=== PATIENT | female | born 1945 | race Caucasian/White ===

== ENCOUNTER 2019-10-17 18:46 | Inpatient (IN) | payer MEDICARE ==
[2019-10-18] MEDS: Acetaminophen 325 MG TAB PO PRN ×3 (06:08→17:12)
[2019-10-18] MEDS: Aspirin 81 mg Enteric Coated Tablet PO SCH (08:44)
[2019-10-18] MEDS: Gabapentin 300 MG CAP PO SCH ×2 (08:45→20:27)
[2019-10-18] MEDS ORDERED: Prevnar 13-Val Conj/PF 0.5 ML SYRINGE IM ONE (09:00)
[2019-10-18] MEDS ORDERED: Potassium Chloride 10 MEQ TAB PO SCH (09:00)
[2019-10-18] MEDS: Montelukast Sodium 10 mg Tablet PO SCH (20:26)
[2019-10-18] MEDS: Atorvastatin Calcium 40 MG TAB PO SCH (20:27)
[2019-10-18] MEDS: Mirtazapine 15 MG TAB PO SCH (20:27)
[2019-10-18] MEDS: traMADol HCl 50 MG TAB PO PRN (21:45)
[2019-10-19] MEDS: Acetaminophen 325 MG TAB PO PRN ×2 (08:26→18:46)
[2019-10-19] MEDS: Aspirin 81 mg Enteric Coated Tablet PO SCH (08:27)
[2019-10-19] MEDS: Gabapentin 300 MG CAP PO SCH ×2 (08:27→21:04)
[2019-10-19] MEDS: traMADol HCl 50 MG TAB PO PRN ×2 (11:16→21:05)
[2019-10-19] MEDS: Atorvastatin Calcium 40 MG TAB PO SCH (21:04)
[2019-10-19] MEDS: Mirtazapine 15 MG TAB PO SCH (21:05)
[2019-10-19] MEDS: Montelukast Sodium 10 mg Tablet PO SCH (21:05)
[2019-10-20] MEDS: traMADol HCl 50 MG TAB PO PRN ×2 (08:59→15:50)
[2019-10-20] MEDS: Aspirin 81 mg Enteric Coated Tablet PO SCH (09:01)
[2019-10-20] MEDS: Gabapentin 300 MG CAP PO SCH ×2 (09:01→20:27)
[2019-10-20] MEDS: Mirtazapine 15 MG TAB PO SCH (20:26)
[2019-10-20] MEDS: Montelukast Sodium 10 mg Tablet PO SCH (20:26)
[2019-10-20] MEDS: Atorvastatin Calcium 40 MG TAB PO SCH (20:26)
[2019-10-21] MEDS: Aspirin 81 mg Enteric Coated Tablet PO SCH (08:41)
[2019-10-21] MEDS: Gabapentin 300 MG CAP PO SCH ×2 (08:41→20:46)
[2019-10-21] MEDS: Acetaminophen 325 MG TAB PO PRN (08:42)
[2019-10-21] MEDS: traMADol HCl 50 MG TAB PO PRN ×2 (13:50→20:45)
[2019-10-21] MEDS: Atorvastatin Calcium 40 MG TAB PO SCH (20:45)
[2019-10-21] MEDS: Mirtazapine 15 MG TAB PO SCH (20:45)
[2019-10-21] MEDS: Montelukast Sodium 10 mg Tablet PO SCH (20:46)
--- NOTE | 2019-10-22 01:49 | HP ---
CHIEF COMPLAINT: Generalized weakness. HISTORY OF PRESENT ILLNESS: The patient is a 74-year-old white female, who was recently admitted to inpatient rehab for diffuse weakness and increasing risk of fall. After discharge, the patient presented to [facility] because of increased lower extremity weakness as well as paresthesia and numbness and tingling intermittently in her feet and hands bilaterally. She was admitted to [facility] and evaluated for CVA workup. She had imaging, which was negative for stroke. Dr. Syed, Neurology was consulted, who recommended the patient start 81 mg aspirin and atorvastatin. She was also found to have some mild orthostatic hypotension that resolved with IV fluids. She underwent echocardiogram consistent with diastolic dysfunction, but she had no findings consistent with an acute CVA. The patient was extremely weak and having difficulty with ambulation. She is high risk for fall. She was evaluated by Physical Therapy and was deemed to be appropriate for physical therapy, and she was deemed appropriate to be transferred to [facility] for evaluation for swing bed. PAST MEDICAL HISTORY: Significant for congestive heart failure, history of alcohol abuse in the past, hypertension, gastroesophageal reflux disease, chronic renal disease stage 3, and history of tobacco abuse. PAST SURGICAL HISTORY: None. FAMILY HISTORY: Significant for mother with breast cancer at age 53. Father had coronary artery disease, PR and stroke at age 76. SOCIAL HISTORY: The patient smokes about one pack per day since she was 14 years old. She reports drinking hard liquor with Sprite daily, but says that she has not had any alcohol for over a week and has had no signs of withdrawal. The patient does live alone and has had increased knee pain and weakness over several months with some debilitation and risk for fall. REVIEW OF SYSTEMS: The patient denies any fevers, chills, or night sweats. No nausea, vomiting, or diarrhea. No chest pain or shortness of breath. There was a concern for possible and she was seen in inpatient rehab, but workup for parasite, stool studies were all negative. The patient denies any significant weight loss or weight gain. No significant swelling of the joint other than her knees bilaterally, which she says is chronic in nature. The patient does report paresthesias and tingling of her fingers and toes bilaterally, which comes and goes, which has been relieved in the past by gabapentin. She has no focal weakness, numbness, or dizziness, and has had no history of seizures and no syncopal spells. PHYSICAL EXAMINATION: VITAL SIGNS: Blood pressure was 122/68, respiratory rate was 16, pulse was 82, temperature 97.8, and O2 saturation 99% on room air. HEENT: Atraumatic and normocephalic. Extraocular movements are intact. Pupils are equal, round, and reactive to light and accommodation. Oropharynx, mucous membranes are moist. No exudate, discharge, or lesions. NECK: Supple. No masses palpated. CHEST: Clear to auscultation bilaterally. HEART: Regular rate and rhythm without murmurs, rubs, or gallops. ABDOMEN: Soft, nontender, and nondistended. No masses were palpated. EXTREMITIES: Sensation was intact to the upper and lower extremities bilaterally. The patient did not have any obvious motor weakness other than just diffuse decreased strength with leg elevation bilaterally. ASSESSMENT AND PLAN: 1. Debilitation, weakness. The patient appears to have pretty fair to poor personal diet and some poor hygiene by living alone, exacerbated possibly by alcohol abuse. At this time, the patient has not had alcohol for over 7 to 10 days. No signs of withdrawal. She was checked for folic acid and thiamine deficiency and she was not found to have any in her acute stay. We will recommend multivitamins and proper diet. Alcohol cessation, moderate use and appropriate use will be discussed with the patient. The patient will undergo physical therapy and occupational therapy for diffuse weakness. 2. Peripheral neuropathy. This may be related to chronic alcohol use. We will start the patient on Neurontin 300 mg p.o. b.i.d., evaluate and consider titrating if her symptoms do not improve. 3. History of smoking. Smoking cessation was recommended. We will consider nicotine patch if the patient agrees. 4. Hyperlipidemia/possible risk for cerebrovascular accident. The patient will continue aspirin and atorvastatin as recommended by Neurology. 5. Disposition: Plan is for the patient to be discharged to home if her motor and sensory symptoms improve. She does not have signs of osteoarthritis of her extremity, especially in her knees. Hopefully with rehab, she will be able to be fully independent. Since the patient is fairly mobile, deep venous thrombosis prophylaxis may not be needed. We will evaluate the patient's mobility and decide if anything other than aspirin will be needed. Job ID: [id number]
[2019-10-22] MEDS: traMADol HCl 50 MG TAB PO PRN (07:28)
[2019-10-22] MEDS: Multivit, Therapeutic 1 TAB PO SCH (08:05)
[2019-10-22] MEDS: Aspirin 81 mg Enteric Coated Tablet PO SCH (08:05)
[2019-10-22] MEDS: Gabapentin 300 MG CAP PO SCH ×2 (08:06→21:12)
[2019-10-22] MEDS: Docusate 100 MG CAP PO PRN (18:54)
[2019-10-22] MEDS: Montelukast Sodium 10 mg Tablet PO SCH (21:11)
[2019-10-22] MEDS: Mirtazapine 15 MG TAB PO SCH (21:11)
[2019-10-22] MEDS: Nicotine 21 MG PATCH TOP SCH (21:12)
[2019-10-22] MEDS: Atorvastatin Calcium 40 MG TAB PO SCH (21:12)
[2019-10-23] MEDS: diphenhydrAMINE 25 MG CAP PO PRN (01:43)
[2019-10-23] MEDS: traMADol HCl 50 MG TAB PO PRN (05:24)
[2019-10-23] MEDS: Docusate 100 MG CAP PO PRN (08:03)
[2019-10-23] MEDS: Multivit, Therapeutic 1 TAB PO SCH (08:03)
[2019-10-23] MEDS: Aspirin 81 mg Enteric Coated Tablet PO SCH (08:03)
[2019-10-23] MEDS: Gabapentin 300 MG CAP PO SCH ×2 (08:04→21:46)
[2019-10-23] MEDS: Acetaminophen 325 MG TAB PO PRN (08:19)
[2019-10-23] MEDS: AQUAPHOR FS PRN (14:48)
[2019-10-23] MEDS: Montelukast Sodium 10 mg Tablet PO SCH (21:46)
[2019-10-23] MEDS: Nicotine 21 MG PATCH TOP SCH (21:46)
[2019-10-23] MEDS: Mirtazapine 15 MG TAB PO SCH (21:46)
[2019-10-23] MEDS: Atorvastatin Calcium 40 MG TAB PO SCH (21:46)
[2019-10-24] MEDS: traMADol HCl 50 MG TAB PO PRN ×3 (01:19→20:09)
[2019-10-24] MEDS: AQUAPHOR FS PRN (07:31)
[2019-10-24] MEDS: Gabapentin 300 MG CAP PO SCH ×2 (08:27→20:09)
[2019-10-24] MEDS: Aspirin 81 mg Enteric Coated Tablet PO SCH (08:27)
[2019-10-24] MEDS: Multivit, Therapeutic 1 TAB PO SCH (08:27)
[2019-10-24] MEDS: Mirtazapine 15 MG TAB PO SCH (20:08)
[2019-10-24] MEDS: Nicotine 21 MG PATCH TOP SCH (20:09)
[2019-10-24] MEDS: Montelukast Sodium 10 mg Tablet PO SCH (20:09)
[2019-10-24] MEDS: Atorvastatin Calcium 40 MG TAB PO SCH (20:09)
[2019-10-25] MEDS: Acetaminophen 325 MG TAB PO PRN (04:45)
[2019-10-25] MEDS: diphenhydrAMINE 25 MG CAP PO PRN (04:49)
[2019-10-25] MEDS: AQUAPHOR FS PRN ×2 (04:50→17:10)
[2019-10-25] MEDS: Docusate 100 MG CAP PO PRN (08:49)
[2019-10-25] MEDS: Aspirin 81 mg Enteric Coated Tablet PO SCH (08:49)
[2019-10-25] MEDS: Gabapentin 300 MG CAP PO SCH ×2 (08:49→20:42)
[2019-10-25] MEDS: Multivit, Therapeutic 1 TAB PO SCH (08:49)
[2019-10-25] MEDS: traMADol HCl 50 MG TAB PO PRN ×2 (08:56→17:08)
[2019-10-25] MEDS: Clindamycin 150 MG CAP PO SCH ×2 (09:49→17:08)
[2019-10-25] MEDS: Atorvastatin Calcium 40 MG TAB PO SCH (20:42)
[2019-10-25] MEDS: Montelukast Sodium 10 mg Tablet PO SCH (20:42)
[2019-10-25] MEDS: Nicotine 21 MG PATCH TOP SCH (20:42)
[2019-10-25] MEDS: Mirtazapine 15 MG TAB PO SCH (20:42)
[2019-10-26] MEDS: traMADol HCl 50 MG TAB PO PRN ×3 (01:56→17:16)
[2019-10-26] MEDS: Clindamycin 150 MG CAP PO SCH ×3 (01:56→17:16)
[2019-10-26] MEDS: AQUAPHOR FS PRN (06:07)
[2019-10-26] MEDS: Multivit, Therapeutic 1 TAB PO SCH (09:08)
[2019-10-26] MEDS: Aspirin 81 mg Enteric Coated Tablet PO SCH (09:08)
[2019-10-26] MEDS: Gabapentin 300 MG CAP PO SCH ×2 (09:08→20:42)
[2019-10-26] MEDS: Docusate 100 MG CAP PO PRN (09:09)
[2019-10-26] MEDS: Polyethylene Glycol 3350 17 GM Packet PO PRN (11:29)
[2019-10-26] MEDS: Montelukast Sodium 10 mg Tablet PO SCH (20:42)
[2019-10-26] MEDS: Mirtazapine 15 MG TAB PO SCH (20:42)
[2019-10-26] MEDS: Atorvastatin Calcium 40 MG TAB PO SCH (20:42)
[2019-10-26] MEDS: Nicotine 21 MG PATCH TOP SCH (20:54)
[2019-10-27] MEDS: Clindamycin 150 MG CAP PO SCH ×3 (02:02→17:38)
[2019-10-27] MEDS: traMADol HCl 50 MG TAB PO PRN ×3 (02:08→16:12)
[2019-10-27] MEDS: Polyethylene Glycol 3350 17 GM Packet PO PRN (09:22)
[2019-10-27] MEDS: Multivit, Therapeutic 1 TAB PO SCH (09:23)
[2019-10-27] MEDS: Aspirin 81 mg Enteric Coated Tablet PO SCH (09:23)
[2019-10-27] MEDS: Docusate 100 MG CAP PO PRN (09:24)
[2019-10-27] MEDS: Gabapentin 300 MG CAP PO SCH ×2 (09:24→20:52)
[2019-10-27] MEDS: Acetaminophen 325 MG TAB PO PRN (09:43)
[2019-10-27] MEDS: AQUAPHOR FS PRN (16:13)
[2019-10-27] MEDS: Mirtazapine 15 MG TAB PO SCH (20:52)
[2019-10-27] MEDS: Montelukast Sodium 10 mg Tablet PO SCH (20:52)
[2019-10-27] MEDS: Atorvastatin Calcium 40 MG TAB PO SCH (20:52)
[2019-10-27] MEDS: Nicotine 21 MG PATCH TOP SCH (21:06)
[2019-10-28] MEDS: traMADol HCl 50 MG TAB PO PRN (00:50)
[2019-10-28] MEDS: Clindamycin 150 MG CAP PO SCH ×3 (02:17→17:47)
[2019-10-28] MEDS: Gabapentin 300 MG CAP PO SCH ×2 (08:57→21:08)
[2019-10-28] MEDS: Aspirin 81 mg Enteric Coated Tablet PO SCH (08:57)
[2019-10-28] MEDS: Multivit, Therapeutic 1 TAB PO SCH (09:04)
[2019-10-28] MEDS: Atorvastatin Calcium 40 MG TAB PO SCH (21:08)
[2019-10-28] MEDS: Mirtazapine 15 MG TAB PO SCH (21:08)
[2019-10-28] MEDS: Nicotine 21 MG PATCH TOP SCH (21:09)
[2019-10-28] MEDS: Montelukast Sodium 10 mg Tablet PO SCH (21:09)
[2019-10-28] MEDS: Acetaminophen 325 MG TAB PO PRN (21:09)
[2019-10-29] MEDS: Clindamycin 150 MG CAP PO SCH ×3 (01:35→18:09)
[2019-10-29] MEDS: Acetaminophen 325 MG TAB PO PRN ×4 (01:36→21:04)
[2019-10-29] MEDS: Aspirin 81 mg Enteric Coated Tablet PO SCH (08:45)
[2019-10-29] MEDS: Gabapentin 300 MG CAP PO SCH ×2 (08:46→21:05)
[2019-10-29] MEDS: Multivit, Therapeutic 1 TAB PO SCH (08:46)
[2019-10-29 14:50] LABS: Hemoglobin 12.2 g/dL (12.0-16.0); Mean Corpuscular HGB CONC 28.2 g/dL (32.0-36.0); Mean Corpuscular Hemoglobin 31.6 pg (27.0-31.0); Mean Platelet Volume 8.3 fL (7.4-10.4); Platelet Count 203 thou/uL (130-400); RBC Distribution Width 15.3 % (11.5-14.5); Red Blood Cell (RBC) Count 3.85 mill/uL (4.20-5.40); White Blood Cell (WBC) Count 6.3 thou/uL (4.8-10.8)
[2019-10-29 15:04] LABS: ALT (SGPT) 18 U/L (8-55); Albumin 3.4 g/dL (3.4-4.8); Alkaline Phosphatase 64 U/L (40-110); Anion Gap 15 mmol/L (10-20); BUN (Urea Nitrogen) 9 mg/dL (9.8-20.1); Bilirubin, Total Less than 0.2 mg/dL (0.2-1.2); Calc. Creatinine Clearance 89 mL/min (70-130); Carbon Dioxide 24 mmol/L (23-31); Chloride 105 mmol/L (98-107); Estimated GFR-MDRD 75; Globulin 3.4 g/dL (2.4-3.5); Glucose 101 mg/dL (83-110); Protein, Total 6.8 g/dL (6.0-8.3); Sodium 139 mmol/L (136-145)
[2019-10-29 15:29] LABS: AST (SGOT) 36 U/L (5-34)
[2019-10-29 15:35] LABS: Band 14 % (5-11); Eosinophils 6 % (0-10); Hypochromia MODERATE=16-30 cells (100X) (0-5/hpf); Lymphocytes 10 % (21-51); MDiff Complete? YES; Macrocytosis MARKED = >30 cells (100X) (0-5/hpf); Monocytes 3 % (0-10); Neutrophil 66 % (42-75); Reactive Lymphocytes 1 % (0-10)
[2019-10-29] MEDS: Ibuprofen 600 MG TAB PO PRN (15:44)
[2019-10-29] MEDS: Mirtazapine 15 MG TAB PO SCH (21:05)
[2019-10-29] MEDS: Nicotine 21 MG PATCH TOP SCH (21:05)
[2019-10-29] MEDS: Atorvastatin Calcium 40 MG TAB PO SCH (21:05)
[2019-10-29] MEDS: Montelukast Sodium 10 mg Tablet PO SCH (21:05)
[2019-10-29] MEDS: diphenhydrAMINE 25 MG CAP PO PRN (22:42)
[2019-10-30] MEDS: Clindamycin 150 MG CAP PO SCH ×3 (01:45→17:54)
[2019-10-30] MEDS: Acetaminophen 325 MG TAB PO PRN ×3 (03:31→19:12)
[2019-10-30] MEDS: Aspirin 81 mg Enteric Coated Tablet PO SCH (09:43)
[2019-10-30] MEDS: Gabapentin 300 MG CAP PO SCH ×2 (09:43→21:05)
[2019-10-30] MEDS: Ibuprofen 600 MG TAB PO PRN (15:29)
[2019-10-30] MEDS ORDERED: Benzonatate 100 MG CAP PO PRN (17:57)
[2019-10-30] MEDS: Atorvastatin Calcium 40 MG TAB PO SCH (21:05)
[2019-10-30] MEDS: Nicotine 21 MG PATCH TOP SCH (21:05)
[2019-10-30] MEDS: Mirtazapine 15 MG TAB PO SCH (21:05)
[2019-10-30] MEDS: Montelukast Sodium 10 mg Tablet PO SCH (21:05)
[2019-10-30] MEDS: traMADol HCl 50 MG TAB PO PRN (22:31)
[2019-10-31] MEDS: Clindamycin 150 MG CAP PO SCH ×3 (02:10→20:10)
[2019-10-31] MEDS: Aspirin 81 mg Enteric Coated Tablet PO SCH ×2 (08:38→08:42)
[2019-10-31] MEDS: Gabapentin 300 MG CAP PO SCH ×2 (08:38→20:10)
[2019-10-31] MEDS: traMADol HCl 50 MG TAB PO PRN (08:42)
[2019-10-31] MEDS: Acetaminophen 325 MG TAB PO PRN (14:05)
[2019-10-31] MEDS: Montelukast Sodium 10 mg Tablet PO SCH (20:10)
[2019-10-31] MEDS: Atorvastatin Calcium 40 MG TAB PO SCH (20:10)
[2019-10-31] MEDS: Ibuprofen 600 MG TAB PO PRN (20:11)
[2019-10-31] MEDS: Mirtazapine 15 MG TAB PO SCH (20:11)
[2019-10-31] MEDS: Nicotine 21 MG PATCH TOP SCH (20:15)
[2019-10-31] MEDS: Melatonin 3 MG TAB PO PRN (22:22)
[2019-11-01] MEDS: Clindamycin 150 MG CAP PO SCH ×3 (02:22→18:08)
[2019-11-01] MEDS: Aspirin 81 mg Enteric Coated Tablet PO SCH (08:44)
[2019-11-01] MEDS: Gabapentin 300 MG CAP PO SCH ×2 (08:44→21:26)
[2019-11-01] MEDS: traMADol HCl 50 MG TAB PO PRN ×2 (08:48→21:41)
[2019-11-01] MEDS: Mirtazapine 15 MG TAB PO SCH (21:25)
[2019-11-01] MEDS: Montelukast Sodium 10 mg Tablet PO SCH (21:26)
[2019-11-01] MEDS: Atorvastatin Calcium 40 MG TAB PO SCH (21:26)
[2019-11-01] MEDS: Melatonin 3 MG TAB PO PRN (21:35)
[2019-11-01] MEDS: Nicotine 21 MG PATCH TOP SCH (21:49)
[2019-11-02] MEDS: Clindamycin 150 MG CAP PO SCH ×3 (02:05→17:23)
[2019-11-02] MEDS: Aspirin 81 mg Enteric Coated Tablet PO SCH (09:16)
[2019-11-02] MEDS: Gabapentin 300 MG CAP PO SCH ×2 (09:16→21:36)
[2019-11-02] MEDS: traMADol HCl 50 MG TAB PO PRN ×2 (09:25→21:39)
[2019-11-02] MEDS: Atorvastatin Calcium 40 MG TAB PO SCH (21:35)
[2019-11-02] MEDS: Nicotine 21 MG PATCH TOP SCH (21:35)
[2019-11-02] MEDS: Mirtazapine 15 MG TAB PO SCH (21:36)
[2019-11-02] MEDS: Montelukast Sodium 10 mg Tablet PO SCH (21:36)
[2019-11-02] MEDS: Melatonin 3 MG TAB PO PRN (23:05)
[2019-11-03] MEDS: Clindamycin 150 MG CAP PO SCH ×3 (02:16→17:52)
[2019-11-03] MEDS: Acetaminophen 325 MG TAB PO PRN (02:16)
[2019-11-03] MEDS: Aspirin 81 mg Enteric Coated Tablet PO SCH (09:17)
[2019-11-03] MEDS: Gabapentin 300 MG CAP PO SCH ×2 (09:17→20:47)
[2019-11-03] MEDS: traMADol HCl 50 MG TAB PO PRN ×2 (09:20→20:55)
[2019-11-03] MEDS: diphenhydrAMINE 25 MG CAP PO PRN ×2 (15:59→23:31)
[2019-11-03] MEDS: Montelukast Sodium 10 mg Tablet PO SCH (20:47)
[2019-11-03] MEDS: Mirtazapine 15 MG TAB PO SCH (20:47)
[2019-11-03] MEDS: Nicotine 21 MG PATCH TOP SCH (20:47)
[2019-11-03] MEDS: Atorvastatin Calcium 40 MG TAB PO SCH (20:47)
[2019-11-03] MEDS: Docusate 100 MG CAP PO PRN (20:56)
[2019-11-03] MEDS ORDERED: Triamcinolone 0.1% Cream 15 GM TUBE TOP PRN (22:33)
[2019-11-04] MEDS: Ibuprofen 600 MG TAB PO PRN (02:28)
[2019-11-04] MEDS: Clindamycin 150 MG CAP PO SCH ×2 (02:28→11:02)
[2019-11-04] MEDS: traMADol HCl 50 MG TAB PO PRN (08:48)
[2019-11-04] MEDS: Gabapentin 300 MG CAP PO SCH ×2 (08:52→20:33)
[2019-11-04] MEDS: Aspirin 81 mg Enteric Coated Tablet PO SCH (08:52)
[2019-11-04] MEDS: Triamcinolone 0.1% Cream 15 GM TUBE TOP SCH ×2 (08:53→20:30)
[2019-11-04 13:14] VITALS: BMI 31.6
[2019-11-04] MEDS: Nicotine 21 MG PATCH TOP SCH (20:31)
[2019-11-04] MEDS: Mirtazapine 15 MG TAB PO SCH (20:32)
[2019-11-04] MEDS: Atorvastatin Calcium 40 MG TAB PO SCH (20:33)
[2019-11-04] MEDS: Montelukast Sodium 10 mg Tablet PO SCH (20:33)
[2019-11-04] MEDS: diphenhydrAMINE 25 MG CAP PO PRN (20:42)
[2019-11-04] MEDS: Melatonin 3 MG TAB PO PRN (23:15)
[2019-11-04] MEDS: Acetaminophen 325 MG TAB PO PRN (23:15)
[2019-11-05] MEDS: Aspirin 81 mg Enteric Coated Tablet PO SCH (08:23)
[2019-11-05] MEDS: Gabapentin 300 MG CAP PO SCH ×2 (08:23→20:46)
[2019-11-05] MEDS: Triamcinolone 0.1% Cream 15 GM TUBE TOP SCH ×2 (08:23→20:46)
[2019-11-05] MEDS: traMADol HCl 50 MG TAB PO PRN ×2 (08:27→19:24)
[2019-11-05 18:17] VITALS: TEMP 98.2
[2019-11-05] MEDS: Ibuprofen 600 MG TAB PO PRN (20:45)
[2019-11-05] MEDS: Montelukast Sodium 10 mg Tablet PO SCH (20:46)
[2019-11-05] MEDS: Nicotine 21 MG PATCH TOP SCH (20:46)
[2019-11-05] MEDS: Atorvastatin Calcium 40 MG TAB PO SCH (20:46)
[2019-11-05] MEDS: Mirtazapine 15 MG TAB PO SCH (20:46)
[2019-11-05] MEDS: Acetaminophen 325 MG TAB PO PRN (22:11)
[2019-11-06 06:35] VITALS: BP 117/57
[2019-11-06] MEDS: Aspirin 81 mg Enteric Coated Tablet PO SCH (08:59)
[2019-11-06] MEDS: Gabapentin 300 MG CAP PO SCH (08:59)
[2019-11-06] MEDS: Triamcinolone 0.1% Cream 15 GM TUBE TOP SCH (09:01)
== END 2019-11-06 12:23 | disposition home health service (06) | DRG 897 ==
LOC: BURMED 20:55
PROVIDERS: ADMIT Family Medicine; ATTEND Family Medicine
DX: F10.10 Alcohol abuse, uncomplicated (principal); I13.0 Hypertensive heart and chronic kidney disease with heart failure and stage 1 through stage 4 chronic kidney disease, or unspecified chronic kidney disease; N18.3 Chronic kidney disease, stage 3 (moderate); K21.9 Gastro-esophageal reflux disease without esophagitis; I50.9 Heart failure, unspecified; I95.1 Orthostatic hypotension; G62.9 Polyneuropathy, unspecified; E78.5 Hyperlipidemia, unspecified; F17.210 Nicotine dependence, cigarettes, uncomplicated
CPT/HCPCS: 36415; 80053; 85025; Q0163

== ENCOUNTER 2020-06-26 01:45 | Emergency (ER) | payer MEDICARE ==
[2020-06-26] MEDS ORDERED: Fentanyl 100 MCG/2 ML VIAL ONE (02:26)
[2020-06-26] MEDS ORDERED: Cefepime 2 GM VIAL ONE (02:34)
[2020-06-26] MEDS ORDERED: Sodium Chloride 0.9% 100 ML ONE (02:34)
[2020-06-26 03:02] LABS: Hemoglobin 13.4 g/dL (12.0-16.0); Mean Corpuscular Hemoglobin 38.8 pg (27.0-31.0); Mean Platelet Volume 8.6 fL (7.4-10.4); Platelet Count 115 thou/uL (130-400); RBC Distribution Width 16.4 % (11.5-14.5); Red Blood Cell (RBC) Count 3.45 mill/uL (4.20-5.40); White Blood Cell (WBC) Count 11.7 thou/uL (4.8-10.8)
[2020-06-26 03:05] LABS: INR-International Normal Ratio 1.1; PTT 28.3 sec (22.9-36.1); Prothrombin Time 14.5 sec (12.0-14.7)
[2020-06-26 03:16] LABS: ALT (SGPT) 50 U/L (8-55); AST (SGOT) 116 U/L (5-34); Albumin 3.2 g/dL (3.4-4.8); Alkaline Phosphatase 110 U/L (40-110); Anion Gap 16 mmol/L (10-20); BUN (Urea Nitrogen) 8 mg/dL (9.8-20.1); Bilirubin, Total 0.9 mg/dL (0.2-1.2); CK (CPK) 145 U/L (29-168); Calc. Creatinine Clearance 0 mL/min (70-130); Calcium 8.1 mg/dL (7.8-10.44); Carbon Dioxide 29 mmol/L (23-31); Chloride 94 mmol/L (98-107); Globulin 2.9 g/dL (2.4-3.5); Glucose 125 mg/dL (83-110); Protein, Total 6.1 g/dL (5.8-8.1); Sodium 136 mmol/L (136-145)
[2020-06-26 03:20] LABS: Potassium 2.9 mmol/L (3.5-5.1)
[2020-06-26 03:35] LABS: Band 4 % (5-11); Lymphocytes 7 % (21-51); MDiff Complete? YES; Macrocytosis SLIGHT = 6-15 cells (100X) (0-5/hpf); Monocytes 7 % (0-10); Neutrophil 80 % (42-75); Platelet Morphology Comment Appears Decreased; Reactive Lymphocytes 1 % (0-10); Vacuoles SLIGHT
== END 2020-06-26 03:05 | disposition short-term general hospital (02) ==
LOC: BURERS 01:45
DX: S72.401A Unspecified fracture of lower end of right femur, initial encounter for closed fracture (principal); L03.116 Cellulitis of left lower limb; L03.115 Cellulitis of right lower limb; F17.210 Nicotine dependence, cigarettes, uncomplicated; I50.9 Heart failure, unspecified; Z79.899 Other long term (current) drug therapy; W01.198A Fall on same level from slipping, tripping and stumbling with subsequent striking against other object, initial encounter
CPT/HCPCS: 36415; 71045; 80053; 82550; 85025; 85610; 85730; 93005; 96365; 96375; J0692; J3010; J3490

== ENCOUNTER 2021-07-16 13:54 | Observation (INO) | payer MEDICARE ==
[2021-07-16] MEDS ORDERED: Fentanyl 100 MCG/2 ML VIAL ONE ×2 (14:43→15:13)
[2021-07-16 15:17] LABS: Bilirubin Small (Negative); Blood, Urine Large (Negative); Clarity Turbid (Clear); Glucose, Urine (Dipstick) 100 mg/dL (Negative); Ketone, Urine Trace mg/dL (Negative); Leukocyte Large (Negative); Nitrite Positive (Negative); Protein, Urine (Dipstick) 100 mg/dL (Neg-Trace); Specific Gravity, Urine 1.025 (1.005-1.030); Urobilinogen 0.2 mg/dL (Less than 2)
[2021-07-16 15:29] LABS: #Eosinphils 0.1 thou/uL (0.0-0.7); #Lymphocytes 1.4 thou/uL (1.20-3.40); #Monocytes 0.5 thou/uL (0.11-0.59); #Neutrophils 8.8 thou/uL (1.40-6.50); %Basophils 0.4 % (0.0-1.0); %Lymphocytes 12.6 % (21.0-51.0); %Monocytes 4.8 % (0.0-10.0); %Neutrophils 81.2 % (42.0-75.0); Hemoglobin 11.5 g/dL (12.0-16.0); Mean Corpuscular HGB CONC 31.7 g/dL (32.0-36.0); Mean Corpuscular Hemoglobin 31.4 pg (27.0-31.0); Mean Corpuscular Volume 99.1 fL (78.0-98.0); Platelet Count 349 thou/uL (130-400); RBC Distribution Width 18.3 % (11.5-14.5); Red Blood Cell (RBC) Count 3.65 mill/uL (4.20-5.40); White Blood Cell (WBC) Count 10.8 thou/uL (4.8-10.8)
[2021-07-16 15:33] LABS: ALT (SGPT) 13 U/L (8-55); AST (SGOT) 36 U/L (5-34); Albumin 2.3 g/dL (3.4-4.8); Alkaline Phosphatase 105 U/L (40-110); Anion Gap 15 mmol/L (10-20); BUN (Urea Nitrogen) 11 mg/dL (9.8-20.1); Bilirubin, Total 0.6 mg/dL (0.2-1.2); Calc. Creatinine Clearance 0 mL/min (70-130); Calcium 8.2 mg/dL (7.8-10.44); Carbon Dioxide 28 mmol/L (23-31); Chloride 101 mmol/L (98-107); Globulin 4.2 g/dL (2.4-3.5); Glucose 83 mg/dL (83-110); Potassium 4.1 mmol/L (3.5-5.1); Protein, Total 6.5 g/dL (5.8-8.1); Sodium 140 mmol/L (136-145)
[2021-07-16 15:36] LABS: Squamous Epithelial 0-3 HPF (0-3); Transitional Epithelial 0-3 HPF (None Seen); WBC/HPF Greater Than 50 HPF (0-3)
[2021-07-16 15:39] LABS: Bacteria/HPF 3+ HPF (None Seen); Yeast-Budding 1+ HPF (None Seen); Yeast-Hyphae 1+ HPF (None Seen)
[2021-07-16] MEDS ORDERED: cefTRIAXone\\ROCEPHIN 1 GM VIAL ONE (15:56)
[2021-07-16] MEDS ORDERED: Ondansetron PF 4 MG/2 ML Vial ONE (17:29)
[2021-07-16] MEDS ORDERED: Ondansetron PF 4 MG/2 ML Vial IVP PRN (17:45)
[2021-07-16] MEDS ORDERED: Ondansetron ODT 4 MG TAB SL PRN (17:45)
[2021-07-16] MEDS ORDERED: Senokot S 8.6-50 MG TAB PO PRN (20:44)
[2021-07-16] MEDS: Nicotine 14 MG PATCH TD SCH (20:56)
[2021-07-16] MEDS: Gabapentin 300 MG CAP PO SCH (20:56)
[2021-07-16] MEDS: Acetaminophen 325 MG TAB PO PRN (20:57)
[2021-07-17 06:08] LABS: Anion Gap 14 mmol/L (10-20); BUN (Urea Nitrogen) 9 mg/dL (9.8-20.1); Calc. Creatinine Clearance 79 mL/min (70-130); Carbon Dioxide 25 mmol/L (23-31); Chloride 104 mmol/L (98-107); Glucose 75 mg/dL (83-110); Potassium 3.7 mmol/L (3.5-5.1); Sodium 139 mmol/L (136-145)
[2021-07-17 06:34] VITALS: BMI 27.4
[2021-07-17 06:52] LABS: #Basophils 0.1 thou/uL (0.0-0.2); #Eosinphils 0.2 thou/uL (0.0-0.7); #Lymphocytes 1.6 thou/uL (1.20-3.40); #Monocytes 0.5 thou/uL (0.11-0.59); #Neutrophils 5.2 thou/uL (1.40-6.50); %Basophils 0.8 % (0.0-1.0); %Eosinophils 2.2 % (0.0-10.0); %Lymphocytes 21.3 % (21.0-51.0); %Monocytes 6.3 % (0.0-10.0); %Neutrophils 69.5 % (42.0-75.0); Hemoglobin 11.6 g/dL (12.0-16.0); Mean Corpuscular HGB CONC 31.3 g/dL (32.0-36.0); Mean Corpuscular Hemoglobin 32.1 pg (27.0-31.0); Mean Platelet Volume 6.7 fL (7.4-10.4); Platelet Count 282 thou/uL (130-400); White Blood Cell (WBC) Count 7.5 thou/uL (4.8-10.8)
[2021-07-17] MEDS: Gabapentin 300 MG CAP PO SCH ×3 (08:36→21:18)
[2021-07-17] MEDS: Lisinopril 20 MG TAB PO SCH (08:36)
[2021-07-17 08:47] LABS: MDiff Complete? YES; Macrocytosis SLIGHT = 6-15 cells (100X) (0-5/hpf); Platelet Morphology Comment Appears Adequate
[2021-07-17] MEDS ORDERED: Furosemide 20 MG TAB PO SCH (09:00)
[2021-07-17] MEDS: Acetaminophen 325 MG TAB PO PRN ×2 (10:25→21:18)
[2021-07-17] MEDS ORDERED: Vancomycin 25 MG/ML Oral SOLN PO SCH (12:45)
[2021-07-17] MEDS: Sodium Chloride 0.9% 250 ML IV SCH ×4 (15:25→17:36)
[2021-07-17] MEDS ORDERED: cefTRIAXone\\ROCEPHIN 1 GM in Sodium Chloride 0.9% 100 ML IVPB SCH (16:00)
[2021-07-17 16:02] LABS: SARS-CoV-2 PCR by NAA DETECTED (NotDetected)
[2021-07-17] MEDS: Vancomycin 25 MG/ML Oral SOLN PO SCH (17:03)
[2021-07-17] MEDS: Nicotine 14 MG PATCH TD SCH (21:19)
[2021-07-18] MEDS: Vancomycin 25 MG/ML Oral SOLN PO SCH ×4 (01:35→17:16)
[2021-07-18] MEDS: Lisinopril 20 MG TAB PO SCH (09:41)
[2021-07-18] MEDS: Gabapentin 300 MG CAP PO SCH ×2 (09:41→13:38)
[2021-07-18] MEDS: Acetaminophen 325 MG TAB PO PRN (13:38)
[2021-07-19] MEDS: Nicotine 14 MG PATCH TD SCH ×2 (00:08→20:31)
[2021-07-19] MEDS: Vancomycin 25 MG/ML Oral SOLN PO SCH ×3 (00:08→11:04)
[2021-07-19] MEDS: Gabapentin 300 MG CAP PO SCH ×4 (00:08→20:31)
[2021-07-19] MEDS: Acetaminophen 325 MG TAB PO PRN (11:03)
[2021-07-19] MEDS ORDERED: Vancomycin HCl 1 GM in Sodium Chloride 0.9% 250 ML 300 ML IVPB SCH (13:45)
[2021-07-19] MEDS: Vancomycin HCl 1 GM in Sodium Chloride 0.9% 250 ML 250 ML IVPB SCH (14:34)
[2021-07-19] MEDS: Lisinopril 20 MG TAB PO SCH (17:59)
[2021-07-20] MEDS: Gabapentin 300 MG CAP PO SCH ×3 (09:32→21:04)
[2021-07-20] MEDS: Lisinopril 20 MG TAB PO SCH (09:33)
[2021-07-20] MEDS: Acetaminophen 325 MG TAB PO PRN (09:43)
[2021-07-20] MEDS: Vancomycin HCl 1 GM in Sodium Chloride 0.9% 250 ML 250 ML IVPB SCH (14:25)
[2021-07-20 17:13] VITALS: BP 134/63; TEMP 98.3
[2021-07-20] MEDS: Nicotine 14 MG PATCH TD SCH (21:04)
== END 2021-07-20 23:24 | disposition swing bed (61) ==
LOC: BURERS 13:54 → BURMED 16:15 → INTOOBSV 16:15
PROVIDERS: ADMIT Family Medicine; ATTEND Family Medicine
DX: A04.72 Enterocolitis due to Clostridium difficile, not specified as recurrent (principal); L89.612 Pressure ulcer of right heel, stage 2; L89.622 Pressure ulcer of left heel, stage 2; N30.01 Acute cystitis with hematuria; B95.7 Other staphylococcus as the cause of diseases classified elsewhere; U07.1 COVID-19; F03.90 Unspecified dementia, unspecified severity, without behavioral disturbance, psychotic disturbance, mood disturbance, and anxiety; E86.0 Dehydration; J30.1 Allergic rhinitis due to pollen; I50.30 Unspecified diastolic (congestive) heart failure; J44.9 Chronic obstructive pulmonary disease, unspecified; G62.9 Polyneuropathy, unspecified; F17.210 Nicotine dependence, cigarettes, uncomplicated; Z79.899 Other long term (current) drug therapy; Z88.5 Allergy status to narcotic agent
CPT/HCPCS: 36415; 51701; 80048; 80053; 81003; 81015; 83605; 85025; 87040; 87077; 87086; 87186; 87324; 87449; 87493; 96365; 96366; 96367; 96375; G0378; J0696; J2405; J3010; J3370; J7030; J7050; U0003; U0005

== ENCOUNTER 2021-07-20 23:30 | Inpatient (IN) | payer MEDICARE ==
[2021-07-21 00:36] VITALS: BMI 27.4
[2021-07-21] MEDS ORDERED: Senokot S 8.6-50 MG TAB PO PRN ×3 (00:45→14:30)
[2021-07-21] MEDS ORDERED: Ondansetron PF 4 MG/2 ML Vial IVP PRN (01:00)
[2021-07-21] MEDS ORDERED: Ondansetron ODT 4 MG TAB SL PRN (01:00)
[2021-07-21] MEDS ORDERED: Acetaminophen 325 MG TAB PO PRN (01:00)
[2021-07-21] MEDS ORDERED: Nicotine 14 MG PATCH TD SCH (09:00)
[2021-07-21] MEDS ORDERED: Non-Formulary Item 1 EACH (Gabapentin [Gabapentin] 600 MG Tablet) PO SCH (09:00)
[2021-07-21] MEDS: Gabapentin 300 MG CAP PO SCH ×3 (09:39→21:00)
[2021-07-21] MEDS: Acetaminophen 325 MG TAB PO PRN ×2 (09:40→15:19)
[2021-07-21] MEDS: Furosemide 20 MG TAB PO SCH (09:41)
[2021-07-21] MEDS: Lisinopril 20 MG TAB PO SCH (09:41)
[2021-07-21] MEDS: Vancomycin HCl 1 GM in Sodium Chloride 0.9% 250 ML 250 ML IVPB SCH (15:12)
[2021-07-21] MEDS: Loperamide HCl 2 MG CAP PO PRN (16:34)
[2021-07-21] MEDS: Nicotine 14 MG PATCH TD SCH (21:01)
[2021-07-22] MEDS: Lisinopril 20 MG TAB PO SCH (08:32)
[2021-07-22] MEDS: Gabapentin 300 MG CAP PO SCH ×3 (08:33→20:36)
[2021-07-22] MEDS: Furosemide 20 MG TAB PO SCH (08:34)
[2021-07-22] MEDS: Loperamide HCl 2 MG CAP PO PRN (10:42)
[2021-07-22] MEDS: Vancomycin HCl 1 GM in Sodium Chloride 0.9% 250 ML 250 ML IVPB SCH (14:22)
[2021-07-22] MEDS: Nicotine 14 MG PATCH TD SCH (20:35)
[2021-07-23] MEDS: Gabapentin 300 MG CAP PO SCH ×3 (09:20→20:26)
[2021-07-23] MEDS: Lisinopril 20 MG TAB PO SCH (09:21)
[2021-07-23] MEDS: Furosemide 20 MG TAB PO SCH (09:22)
[2021-07-23] MEDS: Acetaminophen 325 MG TAB PO PRN ×3 (09:38→22:51)
[2021-07-23 13:26] LABS: Vancomycin, Trough 19.3 ug/mL
[2021-07-23] MEDS: Vancomycin HCl 1 GM in Sodium Chloride 0.9% 250 ML 250 ML IVPB SCH (14:35)
[2021-07-23] MEDS: Loperamide HCl 2 MG CAP PO PRN (14:49)
[2021-07-23] MEDS: Nicotine 14 MG PATCH TD SCH (20:26)
[2021-07-24] MEDS: Furosemide 20 MG TAB PO SCH (09:52)
[2021-07-24] MEDS: Gabapentin 300 MG CAP PO SCH ×3 (09:52→21:10)
[2021-07-24] MEDS: Acetaminophen 325 MG TAB PO PRN (09:53)
[2021-07-24] MEDS: Lisinopril 20 MG TAB PO SCH (09:55)
[2021-07-24] MEDS: Vancomycin HCl 1 GM in Sodium Chloride 0.9% 250 ML 250 ML IVPB SCH (14:28)
[2021-07-24] MEDS: Betamethasone 0.1% Cream 15 GM TUBE TOP PRN (16:54)
[2021-07-24] MEDS: Nicotine 14 MG PATCH TD SCH (21:10)
[2021-07-24] MEDS: diphenhydrAMINE 25 MG CAP PO PRN (21:26)
[2021-07-25] MEDS: diphenhydrAMINE 25 MG CAP PO PRN ×2 (04:30→13:56)
[2021-07-25] MEDS: Betamethasone 0.1% Cream 15 GM TUBE TOP PRN ×2 (04:31→09:21)
[2021-07-25] MEDS: Gabapentin 300 MG CAP PO SCH ×3 (09:18→21:07)
[2021-07-25] MEDS: Acetaminophen 325 MG TAB PO PRN (09:19)
[2021-07-25] MEDS: Furosemide 20 MG TAB PO SCH (09:20)
[2021-07-25 13:28] LABS: Vancomycin, Trough 18.7 ug/mL
[2021-07-25] MEDS: Vancomycin HCl 1 GM in Sodium Chloride 0.9% 250 ML 250 ML IVPB SCH (13:56)
[2021-07-25] MEDS: Lisinopril 20 MG TAB PO SCH (17:56)
[2021-07-25] MEDS: Nicotine 14 MG PATCH TD SCH (21:07)
[2021-07-26] MEDS: Lisinopril 20 MG TAB PO SCH (09:44)
[2021-07-26] MEDS: Furosemide 20 MG TAB PO SCH (09:44)
[2021-07-26] MEDS: Gabapentin 300 MG CAP PO SCH ×3 (09:44→20:32)
[2021-07-26] MEDS: Acetaminophen 325 MG TAB PO PRN (11:35)
[2021-07-26] MEDS: Vancomycin HCl 1 GM in Sodium Chloride 0.9% 250 ML 250 ML IVPB SCH (15:08)
[2021-07-26] MEDS: diphenhydrAMINE 25 MG CAP PO PRN (15:10)
[2021-07-26] MEDS: Betamethasone 0.1% Cream 15 GM TUBE TOP PRN (15:33)
[2021-07-26] MEDS: Nicotine 14 MG PATCH TD SCH (20:33)
[2021-07-27 05:31] LABS: Prothrombin Time 13.3 sec (12.0-14.7)
[2021-07-27 05:32] LABS: PTT 30.5 sec (22.9-36.1)
[2021-07-27 05:47] LABS: #Eosinphils 0.1 thou/uL (0.0-0.7); #Lymphocytes 1.2 thou/uL (1.20-3.40); #Monocytes 0.4 thou/uL (0.11-0.59); #Neutrophils 2.6 thou/uL (1.40-6.50); %Basophils 0.7 % (0.0-1.0); %Eosinophils 3.2 % (0.0-10.0); %Lymphocytes 27.5 % (21.0-51.0); %Neutrophils 59.6 % (42.0-75.0); Hemoglobin 9.2 g/dL (12.0-16.0); MDiff Complete? YES; Macrocytosis SLIGHT = 6-15 cells (100X) (0-5/hpf); Mean Corpuscular HGB CONC 32.4 g/dL (32.0-36.0); Mean Corpuscular Hemoglobin 32.4 pg (27.0-31.0); Mean Platelet Volume 6.9 fL (7.4-10.4); Platelet Count 235 thou/uL (130-400); RBC Distribution Width 18.6 % (11.5-14.5); Red Blood Cell (RBC) Count 2.83 mill/uL (4.20-5.40); White Blood Cell (WBC) Count 4.4 thou/uL (4.8-10.8)
[2021-07-27 06:13] LABS: Anion Gap 15 mmol/L (10-20); BUN (Urea Nitrogen) 14 mg/dL (9.8-20.1); Calc. Creatinine Clearance 86 mL/min (70-130); Calcium 8.1 mg/dL (7.8-10.44); Carbon Dioxide 28 mmol/L (23-31); Chloride 105 mmol/L (98-107); Glucose 83 mg/dL (83-110); Potassium 4.4 mmol/L (3.5-5.1); Sodium 144 mmol/L (136-145)
[2021-07-27] MEDS: Furosemide 20 MG TAB PO SCH (09:05)
[2021-07-27] MEDS: Gabapentin 300 MG CAP PO SCH ×3 (09:06→21:52)
[2021-07-27] MEDS: Lisinopril 20 MG TAB PO SCH (09:06)
[2021-07-27] MEDS: diphenhydrAMINE 25 MG CAP PO PRN ×2 (11:04→22:12)
[2021-07-27] MEDS: Loperamide HCl 2 MG CAP PO PRN (11:04)
[2021-07-27] MEDS: Acetaminophen 325 MG TAB PO PRN ×2 (11:29→21:53)
[2021-07-27] MEDS: Nicotine 14 MG PATCH TD SCH (21:51)
[2021-07-27] MEDS: Nystatin Powder 15 GM BOT TOP SCH (21:51)
[2021-07-28] MEDS: Gabapentin 300 MG CAP PO SCH ×3 (09:03→20:42)
[2021-07-28] MEDS: Furosemide 20 MG TAB PO SCH (09:04)
[2021-07-28] MEDS: Lisinopril 20 MG TAB PO SCH (09:05)
[2021-07-28] MEDS: Nystatin Powder 15 GM BOT TOP SCH ×2 (09:05→20:46)
[2021-07-28] MEDS: Acetaminophen 325 MG TAB PO PRN (14:19)
[2021-07-28] MEDS: diphenhydrAMINE 25 MG CAP PO PRN ×2 (14:23→20:46)
[2021-07-28] MEDS: Nicotine 14 MG PATCH TD SCH (20:40)
[2021-07-29] MEDS: Gabapentin 300 MG CAP PO SCH ×3 (08:21→20:59)
[2021-07-29] MEDS: Nystatin Powder 15 GM BOT TOP SCH ×2 (08:22→21:01)
[2021-07-29] MEDS: Furosemide 20 MG TAB PO SCH (08:22)
[2021-07-29] MEDS: Acetaminophen 325 MG TAB PO PRN ×2 (14:47→21:00)
[2021-07-29] MEDS: Lisinopril 20 MG TAB PO SCH (16:13)
[2021-07-29] MEDS: diphenhydrAMINE 25 MG CAP PO PRN (21:00)
[2021-07-29] MEDS: Nicotine 14 MG PATCH TD SCH (21:01)
[2021-07-30] MEDS: Gabapentin 300 MG CAP PO SCH ×3 (10:14→20:21)
[2021-07-30] MEDS: Nystatin Powder 15 GM BOT TOP SCH ×2 (10:17→20:22)
[2021-07-30] MEDS: Lisinopril 20 MG TAB PO SCH (10:17)
[2021-07-30] MEDS: diphenhydrAMINE 25 MG CAP PO PRN ×2 (12:46→20:22)
[2021-07-30] MEDS: Acetaminophen 325 MG TAB PO PRN ×2 (12:52→20:22)
[2021-07-30] MEDS: Ondansetron ODT 4 MG TAB SL PRN ×2 (12:53→20:22)
[2021-07-30 14:19] LABS: ALT (SGPT) 41 U/L (8-55); AST (SGOT) 60 U/L (5-34); Albumin 2.6 g/dL (3.4-4.8); Alkaline Phosphatase 78 U/L (40-110); Anion Gap 14 mmol/L (10-20); BUN (Urea Nitrogen) 27 mg/dL (9.8-20.1); Bilirubin, Total 0.2 mg/dL (0.2-1.2); Calc. Creatinine Clearance 57 mL/min (70-130); Calcium 9.1 mg/dL (7.8-10.44); Carbon Dioxide 28 mmol/L (23-31); Chloride 102 mmol/L (98-107); Globulin 3.8 g/dL (2.4-3.5); Glucose 89 mg/dL (83-110); Potassium 4.9 mmol/L (3.5-5.1); Protein, Total 6.4 g/dL (5.8-8.1); Sodium 139 mmol/L (136-145)
[2021-07-30 14:26] LABS: #Eosinphils 0.2 thou/uL (0.0-0.7); #Lymphocytes 1.3 thou/uL (1.20-3.40); #Monocytes 0.4 thou/uL (0.11-0.59); #Neutrophils 2.7 thou/uL (1.40-6.50); %Eosinophils 4.1 % (0.0-10.0); %Lymphocytes 27.9 % (21.0-51.0); %Monocytes 8.1 % (0.0-10.0); %Neutrophils 58.9 % (42.0-75.0); Mean Corpuscular HGB CONC 31.2 g/dL (32.0-36.0); Mean Platelet Volume 6.1 fL (7.4-10.4); Platelet Count 233 thou/uL (130-400); RBC Distribution Width 18.6 % (11.5-14.5); Red Blood Cell (RBC) Count 3.13 mill/uL (4.20-5.40); White Blood Cell (WBC) Count 4.6 thou/uL (4.8-10.8)
[2021-07-30] MEDS: Furosemide 20 MG TAB PO SCH (15:32)
[2021-07-30 15:40] LABS: Anisocytosis MODERATE=16-30 cells (100X) (0-5/hpf); Hypochromia SLIGHT = 6-15 cells (100X) (0-5/hpf); MDiff Complete? YES; Macrocytosis MODERATE=16-30 cells (100X) (0-5/hpf); Ovalocytes SLIGHT = 2-5 cells (100X) (0-1/hpf); Tear Drops SLIGHT = 2-5 cells (100X) (0-1/hpf)
[2021-07-30] MEDS: Nicotine 14 MG PATCH TD SCH (20:20)
[2021-07-31] MEDS: Furosemide 20 MG TAB PO SCH (10:14)
[2021-07-31] MEDS: Gabapentin 300 MG CAP PO SCH ×3 (10:15→20:17)
[2021-07-31] MEDS: Lisinopril 20 MG TAB PO SCH (10:15)
[2021-07-31] MEDS: Nystatin Powder 15 GM BOT TOP SCH ×2 (10:15→20:18)
[2021-07-31] MEDS: Loperamide HCl 2 MG CAP PO PRN (20:18)
[2021-07-31] MEDS: Ondansetron ODT 4 MG TAB SL PRN (20:18)
[2021-07-31] MEDS: diphenhydrAMINE 25 MG CAP PO PRN (20:18)
[2021-07-31] MEDS: Nicotine 14 MG PATCH TD SCH (20:18)
[2021-08-01] MEDS: Gabapentin 300 MG CAP PO SCH ×3 (09:48→20:12)
[2021-08-01] MEDS: Lisinopril 20 MG TAB PO SCH (09:48)
[2021-08-01] MEDS: Nystatin Powder 15 GM BOT TOP SCH ×2 (09:48→20:13)
[2021-08-01] MEDS: Furosemide 20 MG TAB PO SCH (09:48)
[2021-08-01] MEDS: diphenhydrAMINE 25 MG CAP PO PRN ×2 (11:26→20:11)
[2021-08-01] MEDS: Acetaminophen 325 MG TAB PO PRN (20:11)
[2021-08-01] MEDS: Nicotine 14 MG PATCH TD SCH (20:13)
[2021-08-02] MEDS: Acetaminophen 325 MG TAB PO PRN (03:24)
[2021-08-02] MEDS: diphenhydrAMINE 25 MG CAP PO PRN ×3 (03:25→21:08)
[2021-08-02] MEDS: Gabapentin 300 MG CAP PO SCH ×3 (08:43→21:03)
[2021-08-02] MEDS: Furosemide 20 MG TAB PO SCH (08:43)
[2021-08-02] MEDS: Nystatin Powder 15 GM BOT TOP SCH ×2 (08:43→21:06)
[2021-08-02] MEDS: Lisinopril 20 MG TAB PO SCH (08:44)
[2021-08-02] MEDS: Nicotine 14 MG PATCH TD SCH (21:04)
[2021-08-03] MEDS: diphenhydrAMINE 25 MG CAP PO PRN ×3 (03:32→21:49)
[2021-08-03] MEDS: Acetaminophen 325 MG TAB PO PRN ×2 (08:37→15:25)
[2021-08-03] MEDS: Gabapentin 300 MG CAP PO SCH ×3 (08:39→21:50)
[2021-08-03] MEDS: Lisinopril 20 MG TAB PO SCH (09:00)
[2021-08-03] MEDS: Nystatin Powder 15 GM BOT TOP SCH ×2 (10:10→21:52)
[2021-08-03] MEDS: Nicotine 14 MG PATCH TD SCH (21:51)
[2021-08-04] MEDS: Acetaminophen 325 MG TAB PO PRN ×3 (02:08→20:39)
[2021-08-04] MEDS: Gabapentin 300 MG CAP PO SCH ×3 (08:48→20:39)
[2021-08-04] MEDS: Lisinopril 20 MG TAB PO SCH (08:50)
[2021-08-04] MEDS: Nystatin Powder 15 GM BOT TOP SCH ×2 (08:56→20:39)
[2021-08-04] MEDS: diphenhydrAMINE 25 MG CAP PO PRN ×2 (08:56→20:39)
[2021-08-04] MEDS: Nicotine 14 MG PATCH TD SCH (20:39)
[2021-08-05] MEDS: Gabapentin 300 MG CAP PO SCH ×3 (08:50→21:26)
[2021-08-05] MEDS: Lisinopril 20 MG TAB PO SCH (08:52)
[2021-08-05] MEDS: diphenhydrAMINE 25 MG CAP PO PRN ×2 (08:59→21:27)
[2021-08-05] MEDS: Acetaminophen 325 MG TAB PO PRN ×2 (08:59→21:27)
[2021-08-05] MEDS: Nystatin Powder 15 GM BOT TOP SCH ×2 (09:03→21:28)
[2021-08-05] MEDS: Nicotine 14 MG PATCH TD SCH (21:28)
[2021-08-06] MEDS: Gabapentin 300 MG CAP PO SCH ×3 (09:07→22:19)
[2021-08-06] MEDS: Lisinopril 20 MG TAB PO SCH (09:09)
[2021-08-06] MEDS: Nystatin Powder 15 GM BOT TOP SCH ×2 (09:09→22:20)
[2021-08-06] MEDS: Acetaminophen 325 MG TAB PO PRN ×2 (09:12→22:21)
[2021-08-06] MEDS: diphenhydrAMINE 25 MG CAP PO PRN ×2 (09:12→22:20)
[2021-08-06] MEDS: Nicotine 14 MG PATCH TD SCH (22:19)
[2021-08-06] MEDS: Ondansetron ODT 4 MG TAB SL PRN (22:20)
[2021-08-07 06:53] VITALS: TEMP 97.9
[2021-08-07] MEDS: Lisinopril 20 MG TAB PO SCH (09:45)
[2021-08-07] MEDS: Gabapentin 300 MG CAP PO SCH ×2 (09:51→15:22)
[2021-08-07] MEDS: Nystatin Powder 15 GM BOT TOP SCH (09:52)
[2021-08-07 18:21] VITALS: BP 113/65
== END 2021-08-07 20:20 | disposition home health service (06) | DRG 592 ==
LOC: BURMED 23:30
PROVIDERS: ADMIT Family Medicine; ATTEND Family Medicine
DX: L89.610 Pressure ulcer of right heel, unstageable (principal); U07.1 COVID-19; N30.01 Acute cystitis with hematuria; I50.32 Chronic diastolic (congestive) heart failure; G62.9 Polyneuropathy, unspecified; R23.3 Spontaneous ecchymoses; B95.7 Other staphylococcus as the cause of diseases classified elsewhere
CPT/HCPCS: 36415; 36416; 80048; 80202; 82565; 85025; 85610; 85730; 97602; J3370; J7050; Q0162

== ENCOUNTER 2021-08-09 23:25 | Emergency (ER) | payer MEDICARE ==
[2021-08-10 01:27] LABS: #Basophils 0.1 thou/uL (0.0-0.2); #Eosinphils 0.1 thou/uL (0.0-0.7); #Lymphocytes 0.9 thou/uL (1.20-3.40); #Monocytes 0.7 thou/uL (0.11-0.59); #Neutrophils 9.2 thou/uL (1.40-6.50); %Basophils 0.7 % (0.0-1.0); %Eosinophils 1.2 % (0.0-10.0); %Lymphocytes 8.1 % (21.0-51.0); %Monocytes 5.9 % (0.0-10.0); %Neutrophils 84.1 % (42.0-75.0); Hemoglobin 12.4 g/dL (12.0-16.0); Mean Corpuscular HGB CONC 32.6 g/dL (32.0-36.0); Mean Corpuscular Hemoglobin 33.8 pg (27.0-31.0); Mean Platelet Volume 7.5 fL (7.4-10.4); Platelet Count 323 thou/uL (130-400); Red Blood Cell (RBC) Count 3.66 mill/uL (4.20-5.40); White Blood Cell (WBC) Count 10.9 thou/uL (4.8-10.8)
[2021-08-10 01:41] LABS: ALT (SGPT) 72 U/L (8-55); AST (SGOT) 66 U/L (5-34); Albumin 3.6 g/dL (3.4-4.8); Alkaline Phosphatase 97 U/L (40-110); Anion Gap 16 mmol/L (10-20); BUN (Urea Nitrogen) 21 mg/dL (9.8-20.1); Bilirubin, Total 0.7 mg/dL (0.2-1.2); CK (CPK) Less than 9 U/L (29-168); Calc. Creatinine Clearance 0 mL/min (70-130); Calcium 9.4 mg/dL (7.8-10.44); Carbon Dioxide 26 mmol/L (23-31); Chloride 98 mmol/L (98-107); Globulin 4.4 g/dL (2.4-3.5); Glucose 123 mg/dL (83-110); Potassium 4.4 mmol/L (3.5-5.1); Sodium 136 mmol/L (136-145)
[2021-08-10 02:05] LABS: Lipase Less than 4 U/L (8-78)
[2021-08-10] MEDS ORDERED: Cefepime 1 GM VIAL ONE (02:40)
[2021-08-10 04:21] LABS: Lactic Acid 1.2 mmol/L (0.5-2.2)
== END 2021-08-10 15:08 | disposition short-term general hospital (02) ==
LOC: BURERS 23:25
DX: L08.9 Local infection of the skin and subcutaneous tissue, unspecified (principal); L89.899 Pressure ulcer of other site, unspecified stage; I50.9 Heart failure, unspecified; G62.9 Polyneuropathy, unspecified; F03.90 Unspecified dementia, unspecified severity, without behavioral disturbance, psychotic disturbance, mood disturbance, and anxiety; F17.210 Nicotine dependence, cigarettes, uncomplicated; Z79.899 Other long term (current) drug therapy
CPT/HCPCS: 36415; 71045; 74176; 80053; 82550; 83605; 83690; 83880; 85025; 86140; 87070; 87077; 87186; 87205; 93005; 96374; 96375; J0692; J3370